=== PATIENT | female | born 1990 | race Caucasian/White ===

== ENCOUNTER 2017-07-01 10:54 | Outpatient (CLI) | payer OTHER ==
[2015-01-26 08:39] VITALS: BMI 39.2
--- NOTE | 2017-07-01 13:15 | DI ---
EXAM: Three views of the left main. History: Left knee pain. Comparison: Left knee radiograph 04/22/2011 Findings: The patella is dislocated laterally. Age indeterminate chip/avulsion fracture of the media l patella. Joint effusion is present. Impression: Laterally dislocated patella with age indeterminate chip/avulsion fracture of the medial patella.
== END 2017-07-01 10:55 | disposition home or self-care (01) ==
LOC: RAD 10:54
PROVIDERS: ATTEND Family Medicine
DX: M25.562 Pain in left knee (principal)